=== PATIENT | male | born 1940 | race Caucasian/White ===

== ENCOUNTER 2023-04-17 09:32 | Day surgery (SDC) | payer MEDICARE ==
[~2023-04-17 09:32] MED LIST: Acetaminophen 500 MG Tab PO ONE; Bacitracin Oint 1 GM U/D Packet ONE; Bupivacaine 0.5% 50 ML MDV ONE; Lactated Ringers 1,000 ML IV SCH; Lidocaine 1% with EPINEPHrine 1:100,000 50 ML MDV ONE; Propofol 200 MG/20 ML SDV ONE; fentaNYL 100 MCG/2 ML SDV ONE
[2023-04-17] MEDS ORDERED: Acetaminophen 500 MG Tab PO ONE (10:05)
== END 2023-04-17 13:13 | disposition home or self-care (01) ==
LOC: JP.SDS 09:32
PROVIDERS: ATTEND Student in an Organized Health Care Education/Training Program
DX: L82.0 Inflamed seborrheic keratosis (principal); Z88.8 Allergy status to other drugs, medicaments and biological substances
CPT/HCPCS: 11420; 88305; A9270; J3490; J7120; J2704; J3010